=== PATIENT | female | born 1965 | race Caucasian/White ===

== ENCOUNTER 2017-01-08 15:45 | Emergency (ER) | payer BC ==
[2017-01-08 16:40] LABS: Mean Cell Volume 106.5 fl (78-100); Mean Platelet Volume 13.1 fl (6-9.5); Platelet Count 90 K/mm3 (150-450); Red Blood Count 3.23 M/mm3 (4.1-5.4); Red Cell Distribution Width 18.6 % (11.5-14.0); White Blood Count 9.7 K/mm3 (4.0-10.5)
[2017-01-08 16:44] LABS: Mean Corpuscular Hemoglobin 38.6 pg (26-32)
[2017-01-08 16:52] LABS: ADD URINE CULTURE? NO (NO); COMPLETE URINE MICROSCOPIC? NO; Collection Type CCMS; Ph 6.5 (5-6)
--- NOTE | 2017-01-08 16:55 | XRAY ---
Indication: Pain. URI. Comparison: None Portable chest demonstrates normal heart, lungs, and bony thorax with a few calcified granulomas.
--- NOTE | 2017-01-08 16:55 | ERPHSYRPT ---
- History of Present Illness Time Seen by Provider: 01/08/17 16:00 Source: patient, family Exam Limitations: no limitations Patient Subjective Stated Complaint: lower back pain radiating to samm area x3 days. Triage Nursing Assessment: lower back pain radiating to samm area for 3 days. denies injury. saw jackie on friday for same s/s. denies pain with urination. normal bowels. nausea yesterday. has had upper resp s/s for 2 weeks. hoarseness noted. Timing/Duration: day(s) (3) Method of Injury: other (none) Quality: dull Back Pain Location: lumbar spine Severity of Pain-Max: moderate Severity of Pain-Current: moderate Modifying Factors: Improves With: movement Associated Symptoms: lower back pain, other (Pelvic pain. Also C/O URTI Sx unrelated . She has allergies and COPD, but no cough.) Allergies/Adverse Reactions: hydrocodone Adverse Reaction (Verified 01/08/17 15:58) Nausea Home Medications: Amox Tr/Potass Clav. 875 mg [Augmentin 875-125 Tablet] 875 mg PO BID 01/08 [History] Guaifenesin/Codeine Phosphate [Codeine-Guaifen 10-100 mg/5 ml] 473 ml PO Q4HPRN PRN 01/08/17 [History] Hx Tetanus, Diphtheria Vaccination/Date Given: Yes Hx Influenza Vaccination/Date Given: No Hx Pneumococcal Vaccination/Date Given: No Immunizations Up to Date: Yes - Review of Systems Constitutional: No Symptoms Eyes: No Symptoms Ears, Nose, & Throat: No Symptoms Respiratory: Dyspnea Cardiac: No Symptoms Abdominal/Gastrointestinal: Abdominal Pain, No Vomiting Genitourinary Symptoms: No Dysuria, No Frequency, No Hematuria Musculoskeletal: Back Pain Skin: No Symptoms Neurological: No Symptoms Psychological: No Symptoms Endocrine: No Symptoms Hematologic/Lymphatic: No Symptoms Immunological/Allergic: No Symptoms - Past Medical History Pertinent Past Medical History: Yes Neurological History: No Pertinent History ENT History: No Pertinent History Cardiac History: No Pertinent History Respiratory History: Bronchitis Endocrine Medical History: No Pertinent History Musculoskeletal History: No Pertinent History GI Medical History: No Pertinent History History: No Pertinent History Psycho-Social History: Depression, Other Female Reproductive Disorders: No Pertinent History - Past Surgical History Past Surgical History: Yes Neuro Surgical History: No Pertinent History Cardiac: No Pertinent History Respiratory: No Pertinent History Gastrointestinal: No Pertinent History Genitourinary: No Pertinent History Musculoskeletal: No Pertinent History Female Surgical History: Lumpectomy Other Surgical History: lt side breat lumpectomy - Social History Smoking Status: Current every day smoker How long have you smoked: 15 Exposure to second hand smoke: Yes Drug Use: none Patient Lives Alone: No - Nursing Vital Signs Temperature: 97.5 F Temperature Source: Oral Pulse Rate: 89 Respiratory Rate: 18 Pain Intensity: 9 - Physical Exam General Appearance: mild distress, other (Smells strongly of ETOH.) Eye Exam: eyes nml inspection Ears, Nose, Throat Exam: normal ENT inspection, pharynx normal Neck Exam: normal inspection, non-tender, supple, full range of motion Respiratory Exam: normal breath sounds, lungs clear Cardiovascular Exam: regular rate/rhythm, normal heart sounds, normal peripheral pulses Gastrointestinal Exam: soft, normal bowel sounds, tenderness (suprapubic) Extremity Exam: normal inspection, normal range of motion Peripheral Pulses: dorsalis-pedis (R): 3+, dorsalis-pedis (L): 3+ Neurologic Exam: alert, oriented x 3, cooperative, sensation nml Skin Exam: normal color, warm, dry SpO2 Interpretation: normal SpO2: 97 Oxygen Delivery: Room Air - Course Nursing assessment & vital signs reviewed: Yes - Radiology Exams Chest X-ray Interpretation: Teleradiologist Report, Negative L-Spine X-ray Interpretation: Other (DDD with L4-S1 facet arthropathy, L4 anterolisthesis on L5.) Ordered Tests: Active Orders 24 hr Category Date Time Status CHEST 1 VIEW (PORTABLE) Stat Exams 01/08/17 16:20 Completed LUMBAR LIMITED (2 OR 3 VIEWS) Stat Exams 01/08/17 16:20 Completed CBC W DIFF Stat Lab 01/08/17 16:32 Completed CMP Stat Lab 01/08/17 16:32 Completed Ethyl Alcohol,Urine Stat Lab 01/08/17 16:30 Completed Manual Differential NC Stat Lab 01/08/17 16:32 Completed UA W/RFX UR CULTURE Stat Lab 01/08/17 16:42 Completed Urine Triage Profile Stat Lab 01/08/17 16:42 Completed Lab/Rad Data: Laboratory Result Diagrams 01/08/17 16:32 01/08/17 16:32 Laboratory Results 01/08/17 01/08/17 01/08/17 Range/Units 16:42 16:42 16:32 WBC (4.0-10.5) K/mm3 RBC (4.1-5.4) M/mm3 Hgb (12.0-16.0) gm/dl Hct (35-47) % MCV (78-100) fl MCH (26-32) pg MCHC (32-36) g/dl RDW (11.5-14.0) % Plt Count (150-450) K/mm3 MPV (6-9.5) fl Segmented Neutrophils (36.0-66.0) % Band Neutrophils (0.0-2.0) % Lymphocytes (Manual) (24-44) % Monocytes (Manual) (0.0-12.0) % Differential Comment Platelet Estimate (NORMAL) Poikilocytosis Anisocytosis Macrocytosis Sodium 134 L (136-145) mEq/L Potassium 2.9 L* (3.5-5.1) mEq/L Chloride 92 L (98-107) mEq/L Carbon Dioxide 30.6 (21-32) mEq/L Anion Gap 13.4 (5-15) MEQ/L BUN 4 L (9-20) mg/dL Creatinine 1.02 (0.55-1.30) mg/dl Estimated GFR > 60 ML/MIN Glucose 416 H (70-110) MG/DL Calcium 8.5 (8.5-10.1) mg/dL Total Bilirubin 5.3 H (0.2-1.0) mg/dL AST 185 H (15-37) U/L ALT 83 H (12-78) U/L Alkaline Phosphatase 251 H (46-116) U/L Serum Total Protein 6.5 (6.4-8.2) gm/dL Albumin 3.0 L (3.4-5.0) g/dL Ur Collection Type CCMS Urine Color YELLOW (YELLOW) Urine Appearance CLEAR (CLEAR) Ur Specific [place] 1.010 (1.005-1.025) Urine Protein NEGATIVE (Negative) Urine Glucose (UA) 500 (NEGATIVE) mg/dL Urine Ketones NEGATIVE (NEGATIVE) Urine Nitrite NEGATIVE (NEGATIVE) Urine Bilirubin SMALL (NEGATIVE) Urine Urobilinogen 2 (0-1) mg/dL Urine WBC (Auto) NEGATIVE (NEGATIVE) Urine RBC (Auto) NEGATIVE (0-5) Umberto/ul Urine Opiates Level POS. (NEGATIVE) Ur Methadone NEG. (NEGATIVE) Urine Barbiturates NEG. (NEGATIVE) Ur Phencyclidine (PCP) NEG. (NEGATIVE) Urine Amphetamine NEG. (NEGATIVE) U Benzodiazepine Level NEG. (NEGATIVE) Urine Cocaine NEG. (NEGATIVE) Urine Marijuana (THC) NEG. (NEGATIVE) Urine pH 6.5 (3-8.5) Urine Ethyl Alcohol (0.00-20) mg/dl Specimen Received 01-08-17 1650 01/08/17 01/08/17 Range/Units 16:32 16:30 WBC 9.7 (4.0-10.5) K/mm3 RBC 3.23 L (4.1-5.4) M/mm3 Hgb 12.5 (12.0-16.0) gm/dl Hct 34.4 L (35-47) % MCV 106.5 H (78-100) fl MCH 38.6 H (26-32) pg MCHC 36.3 H (32-36) g/dl RDW 18.6 H (11.5-14.0) % Plt Count 90 L (150-450) K/mm3 MPV 13.1 H (6-9.5) fl Segmented Neutrophils 83 H (36.0-66.0) % Band Neutrophils 1 (0.0-2.0) % Lymphocytes (Manual) 7 L (24-44) % Monocytes (Manual) 9 (0.0-12.0) % Differential Comment ABNORMAL Platelet Estimate DECREASED (NORMAL) Poikilocytosis 1+ Anisocytosis 2+ Macrocytosis 1+ Sodium (136-145) mEq/L Potassium (3.5-5.1) mEq/L Chloride (98-107) mEq/L Carbon Dioxide (21-32) mEq/L Anion Gap (5-15) MEQ/L BUN (9-20) mg/dL Creatinine (0.55-1.30) mg/dl Estimated GFR ML/MIN Glucose (70-110) MG/DL Calcium (8.5-10.1) mg/dL Total Bilirubin (0.2-1.0) mg/dL AST (15-37) U/L ALT (12-78) U/L Alkaline Phosphatase (46-116) U/L Serum Total Protein (6.4-8.2) gm/dL Albumin (3.4-5.0) g/dL Ur Collection Type Urine Color (YELLOW) Urine Appearance (CLEAR) Ur Specific [place] (1.005-1.025) Urine Protein (Negative) Urine Glucose (UA) (NEGATIVE) mg/dL Urine Ketones (NEGATIVE) Urine Nitrite (NEGATIVE) Urine Bilirubin (NEGATIVE) Urine Urobilinogen (0-1) mg/dL Urine WBC (Auto) (NEGATIVE) Urine RBC (Auto) (0-5) Umberto/ul Urine Opiates Level (NEGATIVE) Ur Methadone (NEGATIVE) Urine Barbiturates (NEGATIVE) Ur Phencyclidine (PCP) (NEGATIVE) Urine Amphetamine (NEGATIVE) U Benzodiazepine Level (NEGATIVE) Urine Cocaine (NEGATIVE) Urine Marijuana (THC) (NEGATIVE) Urine pH 6.5 (3-8.5) Urine Ethyl Alcohol 126 H (0.00-20) mg/dl Specimen Received - Progress Progress: improved Counseled pt/family regarding: drug and/or alcohol abuse, lab results, diagnosis , need for follow-up, rad results - Departure Time of Disposition: 17:15 Departure Disposition: Home Clinical Impression: Thrombocytopenia, Megaloblastic red blood cells, Lumbar degenerative disc disease Alcohol intoxication Qualifiers: Complication of substance-induced condition: with unspecified complication Qualified Code(s): F10.129 - Alcohol abuse with intoxication, unspecified Condition: Stable Critical Care Time: No Referrals: HANNAH SZYMANSKI [Primary Care Provider] - Prescriptions: Cyclobenzaprine HCl 10 mg [Cyclobenzaprine 10 MG] 10 mg PO TID PRN #12 tab
--- NOTE | 2017-01-08 16:57 | XRAY ---
Indication: Back pain. Comparison: None 3 views of lumbar spine demonstrates 5 lumbar vertebral segments with minimal L2-L3 disc space narrowing, minimal multilevel anterior endplate spurring, mild bilateral L4-S1 degenerative facet arthropathy, 2-3 mm L4 anterolisthesis on L5, and mild aortoiliac calcifications. No other bony, articular, or soft tissue abnormalities.
[2017-01-08 17:05] LABS: ALKALINE PHOSPHATASE 251 U/L (46-116); ANION GAP 13.4 MEQ/L (5-15); BILIRUBIN,TOTAL 5.3 mg/dL (0.2-1.0); BLOOD UREA NITROGEN 4 mg/dL (9-20); CHLORIDE 92 mEq/L (98-107); Carbon Dioxide 30.6 mEq/L (21-32); Glucose 416 MG/DL (70-110); SGOT/AST 185 U/L (15-37); SGPT/ALT 83 U/L (12-78); SODIUM 134 mEq/L (136-145); Total Protein 6.5 gm/dL (6.4-8.2)
[2017-01-08 17:06] LABS: ANISOCYTOSIS 2+; BAND 1 % (0.0-2.0); Macrocytosis 1+; Platelet Estimate DECREASED (NORMAL); Poikilocytosis 1+; Total Cells Counted 100
[2017-01-08 17:10] LABS: Potassium 2.9 mEq/L (3.5-5.1)
[2017-01-08] MEDS ORDERED: Klor Con 10 MEQ PO ONE (17:41)
[2017-01-08] MEDS ORDERED: POTASSIUM CHL 40 MEQ/30 ML ORAL SOLUTION ONE (17:42)
[2017-01-08] MEDS: POTASSIUM CHL 40 MEQ/30 ML ORAL SOLUTION PO SCH ×2 (17:45→17:48)
[2017-01-08] MEDS ORDERED: Norflex 60 MG/2 ML IM ONE (17:46)
[2017-01-08] MEDS ORDERED: Norflex 60 MG/2 ML ONE (17:47)
[2017-01-08 18:10] VITALS: BP 139/70; PULSE 79; O2SAT 98
[2017-01-10 13:10] LABS: HEPATITIS B VIRUS CORE TOT AB Non Reactive (Non Reactive); Hepatitis B Surface Ab.Quant. <3.50 mIU/mL (0.00-8.49)
== END 2017-01-08 18:10 | disposition home or self-care (01) ==
LOC: ED 15:45
DX: D69.6 Thrombocytopenia, unspecified (principal); M51.36 Other intervertebral disc degeneration, lumbar region; F10.129 Alcohol abuse with intoxication, unspecified; M54.5 Low back pain
CPT/HCPCS: 36415; 71010; 72100; 80053; 80074; 80307; 80320; 81000; 83986; 85025; 96372; 99284; J2360; A9270-GY

== ENCOUNTER 2017-09-16 11:48 | Emergency (ER) | payer BC ==
[2017-09-16] MEDS ORDERED: Zofran 4 MG/2 ML VIAL IV ONE ×2 (11:59→20:01)
--- NOTE | 2017-09-16 12:04 | ERPHSYRPT ---
- History of Present Illness Time Seen by Provider: 09/16/17 12:01 Historian: patient Exam Limitations: no limitations Physician History: mild diffuse abdominal cramps w/ NVD for one week, hx cirrhosis, pain rad to back, no injury, no fever Allergies/Adverse Reactions: hydrocodone Adverse Reaction (Verified 09/16/17 12:07) Nausea Home Medications: No Reportable Medications [No Reported Medications] 09/16/17 [History] Hx Tetanus, Diphtheria Vaccination/Date Given: Yes Hx Influenza Vaccination/Date Given: No Hx Pneumococcal Vaccination/Date Given: No - Review of Systems Constitutional: No Fever Eyes: Other (icterus) Ears, Nose, & Throat: No Mouth Pain Respiratory: Dyspnea on Exertion (JUNG) Cardiac: No Chest Pain Abdominal/Gastrointestinal: Abdominal Pain, Nausea, Vomiting, Diarrhea Musculoskeletal: No Neck Pain Skin: Other (icterus) Neurological: No Dizziness, No Focal Weakness, No Headache, No Speech Changes Psychological: No Symptoms - Past Medical History Pertinent Past Medical History: Yes Neurological History: No Pertinent History ENT History: No Pertinent History Cardiac History: No Pertinent History Respiratory History: Bronchitis Endocrine Medical History: No Pertinent History Musculoskeletal History: No Pertinent History GI Medical History: No Pertinent History History: No Pertinent History Psycho-Social History: Depression, Other Female Reproductive Disorders: No Pertinent History - Past Surgical History Past Surgical History: Yes Neuro Surgical History: No Pertinent History Cardiac: No Pertinent History Respiratory: No Pertinent History Gastrointestinal: No Pertinent History Genitourinary: No Pertinent History Musculoskeletal: No Pertinent History Female Surgical History: Lumpectomy Other Surgical History: lt side breat lumpectomy - Social History Smoking Status: Current every day smoker How long have you smoked: 15 Exposure to second hand smoke: Yes Drug Use: none Patient Lives Alone: No - Nursing Vital Signs Nursing Vital Signs: Initial Vital Signs Temperature 97.7 F 09/16/17 12:00 Pulse Rate 102 H 09/16/17 12:00 Respiratory Rate 18 09/16/17 12:00 Blood Pressure 118/79 09/16/17 12:00 O2 Sat by Pulse Oximetry 99 09/16/17 12:00 Pain Scale Pain Intensity 7 - Physical Exam General Appearance: no apparent distress Eye Exam: PERRL/EOMI, scleral icterus Ears, Nose, Throat Exam: normal ENT inspection Neck Exam: normal inspection Respiratory Exam: normal breath sounds Cardiovascular Exam: regular rate/rhythm Gastrointestinal/Abdomen Exam: soft, tenderness, distention, No rebound Back Exam: No vertebral tenderness Extremity Exam: normal range of motion, pelvis stable, No pedal edema Neurologic Exam: alert, oriented x 3, cooperative Skin Exam: warm, dry - Course Nursing assessment & vital signs reviewed: Yes EKG Interpreted by Me: Other (nsr 91 prolonged QTc) - CT Exams Abdomen/Pelvis CT Interpretation: Discussed w/radiologist, Other (ascites, no obstruction) - Radiology Ultrasound Exam Abdomen Ultrasound: discussed w/radiologist, Other (gb sludge and wall thickening) Ordered Tests: Active Orders 24 hr Category Date Time Status Clean Catch Urine Specimen STAT Care 09/16/17 14:30 Ordered EKG-ER Only STAT Care 09/16/17 11:59 Active IV Insertion STAT Care 09/16/17 11:59 Active ABDOMEN AND PELVIS W/0 CONTRAS [CT] Stat Exams 09/16/17 11:59 Completed CHEST 1 VIEW (PORTABLE) Stat Exams 09/16/17 11:59 Completed GALLBLADDER [US] Stat Exams 09/16/17 Completed AMYLASE Stat Lab 09/16/17 12:30 Completed BLOOD CULTURE Stat Lab 09/16/17 Ordered CBC W DIFF Stat Lab 09/16/17 12:30 Completed CMP Stat Lab 09/16/17 12:30 Completed CULTURE,URINE Stat Lab 09/16/17 Uncollected CULTURE,URINE Stat Lab 09/16/17 12:35 Received LIPASE Stat Lab 09/16/17 12:30 Completed MAG [MAGNESIUM] Stat Lab 09/16/17 14:31 Ordered Manual Differential NC Stat Lab 09/16/17 12:30 Completed PROTIME WITH INR Stat Lab 09/16/17 12:30 Completed TROPONIN Q3H Lab 09/16/17 12:30 Completed TROPONIN Q3H Lab 09/16/17 15:00 Ordered TROPONIN Q3H Lab 09/16/17 18:00 Ordered TROPONIN Q3H Lab 09/16/17 21:00 Ordered TROPONIN Q3H Lab 09/17/17 00:00 Ordered UA W/ MICROSCOPIC Stat Lab 09/16/17 12:35 Completed Medication Summary Generic Name Dose Route Start Last Admin Trade Name Freq PRN Reason Stop Dose Admin Ceftriaxone Sodium/Dextrose 1 g in 50 mls @ 100 mls/hr 09/16/17 14:31 Rocephin 1 Gm-D5w 50 Ml Bag IV 09/16/17 15:00 STAT STA Discontinued Medications Generic Name Dose Route Start Last Admin Trade Name Aaron PRN Reason Stop Dose Admin Ondansetron HCl 4 mg 09/16/17 11:59 09/16/17 12:13 Zofran 4 Mg/2 Ml Vial IV 09/16/17 12:00 4 mg STAT ONE Administration Ondansetron HCl Confirm 09/16/17 12:09 Zofran 4 Mg/2 Ml Vial Administered 09/16/17 12:10 Dose 4 mg .ROUTE .STK-MED ONE Potassium Chloride 40 meq 09/17/17 13:23 Potassium Chl 40 Meq/30 Ml Oral Solution PO 09/17/17 13:24 DAILY ONE Potassium Chloride 40 meq 09/16/17 13:32 09/16/17 13:37 Potassium Chloride 20 Meq Powder For Oral Aundrea PO 09/16/17 13:33 40 meq STAT ONE Administration Potassium Chloride Confirm 09/16/17 13:36 Potassium Chloride 20 Meq Powder For Oral Aundrea Administered 09/16/17 13:37 Dose 40 meq .ROUTE .STK-MED ONE Lab/Rad Data: Laboratory Result Diagrams 09/16/17 12:30 09/16/17 12:30 Laboratory Results 09/16/17 09/16/17 09/16/17 Range/Units 12:35 12:30 12:30 WBC (4.0-10.5) K/mm3 RBC (4.1-5.4) M/mm3 Hgb (12.0-16.0) gm/dl Hct (35-47) % MCV (78-100) fl MCH (26-32) pg MCHC (32-36) g/dl RDW (11.5-14.0) % Plt Count (150-450) K/mm3 MPV (6-9.5) fl Absolute Neutrophils (1.4-6.9) Segmented Neutrophils (36.0-66.0) % Lymphocytes (Manual) (24-44) % Monocytes (Manual) (0.0-12.0) % Metamyelocytes % Nucleated RBCs % Differential Comment Platelet Estimate (NORMAL) Polychromasia Poikilocytosis Anisocytosis INR (0.8-3.0) Sodium (136-145) mEq/L Potassium (3.5-5.1) mEq/L Chloride (98-107) mEq/L Carbon Dioxide (21-32) mEq/L Anion Gap (5-15) MEQ/L BUN (9-20) mg/dL Creatinine (0.55-1.30) mg/dl Estimated GFR ML/MIN Glucose (70-110) MG/DL Calcium (8.5-10.1) mg/dL Total Bilirubin (0.2-1.0) mg/dL AST (15-37) U/L ALT (12-78) U/L Alkaline Phosphatase (46-116) U/L Ammonia 97 H (11-32) MMOL/l Troponin I < 0.017 (0.000-0.056) ng/ml Serum Total Protein (6.4-8.2) gm/dL Albumin (3.4-5.0) g/dL Amylase (25-115) U/L Lipase (73-393) U/L Ur Collection Type CATH Urine Color DUSTY (YELLOW) Urine Appearance CLEAR (CLEAR) Urine pH 6.0 (5-6) Ur Specific [place] 1.010 (1.005-1.025) Urine Protein COLOR INTERFERENCE (Negative) Urine Ketones COLOR INTERFERENCE (NEGATIVE) Urine Blood 5-10 (0-5) Umberto/ul Urine Nitrite COLOR INTERFERENCE (NEGATIVE) Urine Bilirubin LARGE (NEGATIVE) Urine Urobilinogen 12 (0-1) mg/dL Ur Leukocyte Esterase COLOR INTERFERENCE (NEGATIVE) Urine Microscopic RBC 0-2 (0-2) /HPF Urine Microscopic WBC 10-15 (0-5) /HPF Ur Epithelial Cells RARE (FEW) /HPF Urine Bacteria FEW (NEGATIVE) /HPF Urine Culture Reflexed YES (NO) Urine Glucose COLOR INTERFERENCE (NEGATIVE) mg/dL Specimen Received 09/16/17 1235 09/16/17 09/16/17 09/16/17 Range/Units 12:30 12:30 12:30 WBC 7.6 (4.0-10.5) K/mm3 RBC 2.62 L (4.1-5.4) M/mm3 Hgb 10.3 L (12.0-16.0) gm/dl Hct 29.8 L (35-47) % MCV 113.7 H (78-100) fl MCH 39.3 H (26-32) pg MCHC 34.6 (32-36) g/dl RDW 14.3 H (11.5-14.0) % Plt Count 44 L (150-450) K/mm3 MPV 12.8 H (6-9.5) fl Absolute Neutrophils 5.8 (1.4-6.9) Segmented Neutrophils 75 H (36.0-66.0) % Lymphocytes (Manual) 13 L (24-44) % Monocytes (Manual) 10 (0.0-12.0) % Metamyelocytes 2 % Nucleated RBCs 1 % Differential Comment ABNORMAL Platelet Estimate DECREASED (NORMAL) Polychromasia 1+ Poikilocytosis 1+ Anisocytosis 1+ INR 2.41 (0.8-3.0) Sodium 131 L (136-145) mEq/L Potassium 2.6 L* (3.5-5.1) mEq/L Chloride 89 L (98-107) mEq/L Carbon Dioxide 27.8 (21-32) mEq/L Anion Gap 16.7 H (5-15) MEQ/L BUN 18 (9-20) mg/dL Creatinine 1.58 H (0.55-1.30) mg/dl Estimated GFR 37 ML/MIN Glucose 124 H (70-110) MG/DL Calcium 8.8 (8.5-10.1) mg/dL Total Bilirubin 14.30 H (0.2-1.0) mg/dL AST 126 H (15-37) U/L ALT 81 H (12-78) U/L Alkaline Phosphatase 149 H (46-116) U/L Ammonia (11-32) MMOL/l Troponin I (0.000-0.056) ng/ml Serum Total Protein 6.8 (6.4-8.2) gm/dL Albumin 2.5 L (3.4-5.0) g/dL Amylase 73 (25-115) U/L Lipase 911 H (73-393) U/L Ur Collection Type Urine Color (YELLOW) Urine Appearance (CLEAR) Urine pH (5-6) Ur Specific [place] (1.005-1.025) Urine Protein (Negative) Urine Ketones (NEGATIVE) Urine Blood (0-5) Umberto/ul Urine Nitrite (NEGATIVE) Urine Bilirubin (NEGATIVE) Urine Urobilinogen (0-1) mg/dL Ur Leukocyte Esterase (NEGATIVE) Urine Microscopic RBC (0-2) /HPF Urine Microscopic WBC (0-5) /HPF Ur Epithelial Cells (FEW) /HPF Urine Bacteria (NEGATIVE) /HPF Urine Culture Reflexed (NO) Urine Glucose (NEGATIVE) mg/dL Specimen Received - Progress Progress: improved Progress Note: 09/16/17 14:34 disposition d/w Dr Irby and Marquis that advise transfer to [facility] accept transfer to Discussed with Dr.: Irby - Departure Time of Disposition: 14:35 Departure Disposition: Transfer Clinical Impression: Hypokalemia Liver failure Qualifiers: Liver failure chronicity: chronic Hepatic coma status: without hepatic coma Qualified Code(s): K72.10 - Chronic hepatic failure without coma Condition: Stable Critical Care Time: No Referrals: NAYELY PERSAUD [Primary Care Provider] -
[2017-09-16] MEDS ORDERED: Zofran 4 MG/2 ML VIAL ONE ×2 (12:09→20:02)
[2017-09-16 12:37] LABS: Mean Cell Volume 113.7 fl (78-100); Mean Corpuscular Hemoglobin 39.3 pg (26-32); Mean Platelet Volume 12.8 fl (6-9.5); Platelet Count 44 K/mm3 (150-450); Red Blood Count 2.62 M/mm3 (4.1-5.4); Red Cell Distribution Width 14.3 % (11.5-14.0); White Blood Count 7.6 K/mm3 (4.0-10.5)
[2017-09-16 12:54] LABS: INR 2.41 (0.8-3.0)
--- NOTE | 2017-09-16 12:59 | XRAY ---
Indication: Nausea and vomiting. Comparison: January 08, 2017. Portable chest again demonstrates normal heart, lungs, and bony thorax with a few incidental calcified granulomas.
[2017-09-16 13:02] LABS: Collection Type CATH; Glucose COLOR INTERFERENCE mg/dL (NEGATIVE); Leukocyte Esterase COLOR INTERFERENCE (NEGATIVE)
[2017-09-16 13:03] LABS: ADD URINE CULTURE? YES (NO); Bacteria FEW /HPF (NEGATIVE); Bilirubin LARGE (NEGATIVE); COMPLETE URINE MICROSCOPIC? YES; Epithelial Cells RARE /HPF (FEW)
--- NOTE | 2017-09-16 13:03 | XRAY ---
Indication: Nausea and vomiting. Cirrhosis. Ascites. Multiple contiguous axial images obtained through the abdomen and pelvis without contrast as ordered. Comparison: None Lung bases demonstrates bilateral calcified granulomas and tiny bibasilar effusions. Heart is not enlarged. Diffusely cirrhotic appearing liver with large abdominal/pelvic ascites. No free air. Gallbladder is abnormally distended without gallstones. Noncontrasted stomach and bowel loops appear nonobstructed. Remaining pancreas, spleen, adrenal glands, kidneys, ureters, bladder, and uterus appear unremarkable for noncontrast exam. Mild aortoiliac calcifications without AAA. Osseous structures intact with mild multilevel lumbar degenerative changes. Impression: 1. Cirrhotic liver with large abdomen/pelvic ascites. 2. Abnormal distended gallbladder without gallstones. Gallbladder sonogram may yield further information if clinically warranted. 3. Tiny bibasilar effusions and evidence for old granulomatous disease. CTDI 23.01
[2017-09-16 13:11] LABS: ALBUMIN 2.5 g/dL (3.4-5.0); ANION GAP 16.7 MEQ/L (5-15); BILIRUBIN,TOTAL 14.3 mg/dL (0.2-1.0); Carbon Dioxide 27.8 mEq/L (21-32); Total Protein 6.8 gm/dL (6.4-8.2)
[2017-09-16 13:16] LABS: Potassium 2.6 mEq/L (3.5-5.1)
[2017-09-16] MEDS ORDERED: POTASSIUM CHLORIDE 20 MEQ POWDER FOR ORAL SOL PO ONE (13:32)
[2017-09-16] MEDS ORDERED: POTASSIUM CHLORIDE 20 MEQ POWDER FOR ORAL SOL ONE (13:36)
--- NOTE | 2017-09-16 13:54 | XRAY ---
Indication: Distended gallbladder on same-day CT. Two-dimensional right upper quadrant abdominal sonogram performed. Comparison: July 16, 2014. Gallbladder is moderately distended with now minimal sludge in the dependent portion. There is borderline 3 mm gallbladder wall thickening. Common bile left measures 8mm. New abdominal ascites and cirrhotic appearing liver. Remaining visualized pancreas and right kidney appear sonographically unremarkable. Right kidney measures 10.7 cm in length. Impression: 1. Distended gallbladder with minimal sludge. Borderline gallbladder wall thickening either due to cholecystitis versus edema secondary to ascites. 2. Cirrhotic liver with ascites.
[2017-09-16 14:06] LABS: ABSOLUTE NEUTROPHILS 5.8 (1.4-6.9); Metamyelocyte 2 %; Nucleated Red Blood Cell 1 %; Platelet Estimate DECREASED (NORMAL); Polychromasia 1+; Total Cells Counted 100
[2017-09-16 14:07] LABS: ANISOCYTOSIS 1+; Poikilocytosis 1+
[2017-09-16] MEDS ORDERED: ROCEPHIN 1 Gm-D5w 50 ml Bag** 1 G/50 ML IVPB IV STA (14:31)
[2017-09-16] MEDS ORDERED: ROCEPHIN 1 Gm-D5w 50 ml Bag** 1 G/50 ML IVPB IV ONE (14:42)
[2017-09-16] MEDS ORDERED: MORPHINE SULFATE 2 MG INJ IV ONE (20:01)
[2017-09-16] MEDS ORDERED: MORPHINE SULFATE 2 MG INJ ONE (20:02)
[2017-09-16 22:21] LABS: ANION GAP 17.1 MEQ/L (5-15); Carbon Dioxide 27.9 mEq/L (21-32); Potassium 3.1 mEq/L (3.5-5.1)
[2017-09-16 22:28] VITALS: BP 117/59; PULSE 114; O2SAT 96
[2017-09-17] MEDS ORDERED: POTASSIUM CHL 40 MEQ/30 ML ORAL SOLUTION PO ONE (13:23)
== END 2017-09-16 23:05 | disposition short-term general hospital (02) ==
LOC: ED 11:48
DX: K72.10 Chronic hepatic failure without coma (principal); E87.6 Hypokalemia; R11.2 Nausea with vomiting, unspecified; R19.7 Diarrhea, unspecified
CPT/HCPCS: 36000; 36415; 71010; 74176; 76705; 80048; 80053; 81000; 82140; 82150; 83690; 83735; 84484; 85025; 85610; 87040; 87086; 93005; 96365; 96374; 96376; 99284; 99285; J0696; J2270; J2405; P9612

== ENCOUNTER 2017-12-01 06:01 | Day surgery (SDC) | payer BC, OTHER ==
[~2017-12-01 06:01] MED LIST: Lactated Ringers 1,000 ML IV SCH
[2017-12-01] MEDS ORDERED: Ketamine HCl 50 MG/ML IV ONE (06:02)
[2017-12-01] MEDS ORDERED: DIPRIVAN 200 MG/20 ML IV ONE (06:02)
[2017-12-01] MEDS ORDERED: Lactated Ringers 1,000 ML IV ONE ×2 (06:09→06:32)
[2017-12-01 08:54] VITALS: BP 99/62; PULSE 75; O2SAT 98
--- NOTE | 2017-12-01 14:01 | OP ---
SURGERY DATE/TIME: 12/01/2017 0745 PREOPERATIVE DIAGNOSIS: Screening exam prior to transplant. POSTOPERATIVE DIAGNOSIS: Normal colon. PROCEDURE: Colonoscopy. SURGEON: Dr. Martin. ANESTHESIA: MAC. Medications given by anesthesia department. HISTORY: The patient is a 52 year-old white female with cirrhosis end stage. The patient was needing a colonoscopy to be placed on the transplant list. The patient was appraised of the risks of the procedure including the risk of perforation, phlebitis, untoward reaction to medication, bleeding and missed lesions. The patient verbalized her understanding and desired to have the procedure performed. DESCRIPTION OF PROCEDURE: The patient was given the medications by the anesthesia department. She had continuous pulse oximetry, ECG monitoring, intermittent blood pressure monitoring and tidal CO2 monitoring during the examination. She was placed in the left lateral decubitus position. A digital rectal examination was performed and revealed normal anal sphincter tone and no masses. The flexible Olympus pediatric colonoscope was used to intubate the rectum. A view of the colon was developed sequentially to the cecum including a short distance into the terminal ileum. Upon insertion and withdrawal, including a retroflex view in the rectum, no mucosal lesions were encountered. The scope was removed from the patient who tolerated the procedure well and was sent back to OP recovery in good condition. The prep was noted to be good.
== END 2017-12-01 08:45 | disposition home or self-care (01) ==
LOC: SDC 06:01
PROVIDERS: ATTEND Family Medicine
PROC: 0DJD8ZZ Inspection of Lower Intestinal Tract, Via Natural or Artificial Opening Endoscopic (ICD-10-PCS; principal; 2017-12-01)
DX: Z12.11 Encounter for screening for malignant neoplasm of colon (principal); Z79.4 Long term (current) use of insulin; Z79.899 Other long term (current) drug therapy; K72.90 Hepatic failure, unspecified without coma
CPT/HCPCS: 00812; 82962; J2704

== ENCOUNTER 2017-12-22 05:56 | Day surgery (SDC) | payer OTHER ==
[2017-12-22 06:37] VITALS: BP 125/65; PULSE 98; O2SAT 93
== END 2017-12-22 06:45 | disposition home or self-care (01) ==
LOC: SDC 05:56
PROVIDERS: ATTEND Family Medicine
DX: R11.0 Nausea (principal); R05 Cough; Z53.09 Procedure and treatment not carried out because of other contraindication

== ENCOUNTER 2018-01-02 05:47 | Day surgery (SDC) | payer OTHER ==
[2018-01-02] MEDS ORDERED: Ketamine HCl 50 MG/ML IV ONE (05:48)
[2018-01-02] MEDS ORDERED: DIPRIVAN 200 MG/20 ML IV ONE (05:48)
[2018-01-02] MEDS ORDERED: Lactated Ringers 1,000 ML IV SCH (06:00)
--- NOTE | 2018-01-02 09:01 | OP ---
SURGERY DATE/TIME: 01/02/2018 0743 PREOPERATIVE DIAGNOSIS: Cirrhosis of the liver. The patient is undergoing evaluation for liver transplant. POSTOPERATIVE DIAGNOSIS: Cirrhosis of the liver. The patient is undergoing evaluation for liver transplant. PROCEDURE: Esophagogastroduodenoscopy. SURGEON: Dr. Martin. ANESTHESIA: MAC. Medications were given by the anesthesia department. BRIEF HISTORY: The patient was appraised of the risks of the procedure including the risk of perforation, phlebitis, untoward reaction to medication, bleeding and missed lesions. The patient verbalized her understanding and desired to have the procedure performed. DESCRIPTION OF PROCEDURE: The patient was given the medications by the anesthesia department. She had continuous pulse oximetry, ECG monitoring, intermittent blood pressure monitoring and tidal CO2 monitoring during the examination. She was placed in the left lateral decubitus position. A bite block was placed. The flexible Olympus gastroscope was used to intubate the oropharynx. A view of the larynx was obtained and was normal. The scope was easily passed in the esophagus which appeared to be normal without any evidence of esophageal varices. The gastroesophageal junction appeared to be essentially normal. The stomach was entered where normal gastric rugal folds were seen and these distended nicely with insufflation of air. There was generalized erythema throughout the stomach with punctate areas of bleeding. The scope was passed along the greater curvature of the stomach to the pylorus which was intubated. The duodenum inspected and found to be somewhat erythematous and edematous as well but no erosions or ulcerations were noted. The scope was withdrawn towards the stomach. A retroflex view was obtained of the lesser curvature, fundus and cardia regions of the stomach and there was no significant hiatal hernia noted at this point. The scope was then removed from the patient who tolerated the procedure well and was sent back to outpatient recovery in good condition.
[2018-01-02 09:17] VITALS: BP 117/70; PULSE 91; O2SAT 100
== END 2018-01-02 09:00 | disposition home or self-care (01) ==
LOC: SDC 05:47
PROVIDERS: ATTEND Family Medicine
PROC: 0DJ08ZZ Inspection of Upper Intestinal Tract, Via Natural or Artificial Opening Endoscopic (ICD-10-PCS; principal; 2018-01-02)
DX: K74.60 Unspecified cirrhosis of liver (principal)
CPT/HCPCS: J2704

== ENCOUNTER 2018-01-05 11:09 | Emergency (ER) | payer OTHER ==
[2018-01-05] MEDS ORDERED: DUONEB 0.5-3 MG/3 ml Neb IH ONE ×4 (11:22→12:18)
[2018-01-05] MEDS ORDERED: solu-MEDROL 125 MG IV ONE (11:22)
[2018-01-05] MEDS ORDERED: MORPHINE SULFATE 4 MG INJ IV ONE (11:28)
--- NOTE | 2018-01-05 11:28 | ERPHSYRPT ---
- History of Present Illness Time Seen by Provider: 01/05/18 11:20 Source: patient Exam Limitations: no limitations Physician History: 52 y/o female with history of cirrhosis, COPD and chronic bronchitis comes to the ER with complaints of shortness of breath, cough and chest tightness that started a couple of days ago. Pt arrives with acute respiratory distress, increase work of breathing and tachycardic. Her O2 level is 97% on RA. Pt describes the chets pain as tightness, constant, 8/10 and pt has not taken any pain meds. Pt denies any fever, chills, abdominal pain, nausea or vomiting. Timing/Duration: yesterday Activities at Onset: none Severity of Dyspnea-Max: severe Severity of Dyspnea-Current: severe Possible Cause: no prior episodes Modifying Factors: Improves With: activity Associated Symptoms: wheezing, heaviness International travel in last 2 weeks: No Allergies/Adverse Reactions: hydrocodone Adverse Reaction (Verified 01/05/18 11:28) Nausea Home Medications: Famotidine 20 mg [Pepcid 20 MG] 20 mg PO BID 11/27/17 [History] Glimepiride [Amaryl] 1 mg PO DAILY 11/27/17 [History] Lactulose 10 gm PO Q6H 11/27/17 [History] Magnesium Oxide [Magnesium] 400 mg PO DAILY PRN PRN 11/27/17 [History] Metformin HCl 500 mg [Glucophage 500 MG] 500 mg PO BID 11/27/17 [History] Metoprolol Succinate [Toprol Xl] 25 mg PO DAILY 11/27/17 [History] Pentoxifylline 400 mg [Trental 400 MG] 400 mg PO BID 11/27/17 [History] Potassium Chloride 20 Meq [Klor-Con 20 MEQ] 20 meq PO BID 11/27/17 [History] Spironolactone 25 mg [Aldactone 25 MG] 25 mg PO DAILY 11/27/17 [History] Torsemide 20 mg [Demadex 20 mg] 20 mg PO DAILY 11/27/17 [History] Esomeprazole Magnesium [Nexium] 40 mg PO DAILY 01/02/18 [History] Hx Tetanus, Diphtheria Vaccination/Date Given: Yes Hx Influenza Vaccination/Date Given: No Hx Pneumococcal Vaccination/Date Given: No - Review of Systems Constitutional: No Fever, No Chills Eyes: No Symptoms Ears, Nose, & Throat: No Symptoms Respiratory: Cough, Dyspnea, Dyspnea on Exertion (JUNG), Wheezing Cardiac: Chest Pain, Edema, No Syncope Abdominal/Gastrointestinal: No Abdominal Pain, No Nausea, No Vomiting, No Diarrhea Genitourinary Symptoms: No Dysuria Musculoskeletal: No Back Pain, No Neck Pain Skin: No Rash Neurological: No Dizziness, No Focal Weakness, No Sensory Changes Psychological: No Symptoms Endocrine: No Symptoms All Other Systems: Reviewed and Negative - Past Medical History Pertinent Past Medical History: Yes Neurological History: No Pertinent History ENT History: No Pertinent History Cardiac History: Hypertension Respiratory History: Bronchitis Endocrine Medical History: No Pertinent History Musculoskeletal History: No Pertinent History GI Medical History: Cirrhosis, Esophageal Disorder History: No Pertinent History Psycho-Social History: Other Female Reproductive Disorders: No Pertinent History Other Medical History: stage 4 cirrhosis - Past Surgical History Past Surgical History: Yes Neuro Surgical History: No Pertinent History Cardiac: No Pertinent History Respiratory: No Pertinent History Gastrointestinal: No Pertinent History Genitourinary: No Pertinent History Musculoskeletal: No Pertinent History Female Surgical History: Lumpectomy Other Surgical History: lt side breast lumpectomy - Social History Smoking Status: Current every day smoker How long have you smoked: 35 Exposure to second hand smoke: Yes Drug Use: none Patient Lives Alone: No - Nursing Vital Signs Nursing Vital Signs: Initial Vital Signs Pulse Rate 109 H 01/05/18 11:10 Respiratory Rate 34 H 01/05/18 11:10 Blood Pressure 154/93 01/05/18 11:10 O2 Sat by Pulse Oximetry 98 01/05/18 11:10 Pain Scale Pain Intensity 2 - Physical Exam General Appearance: moderate distress, alert Eye Exam: PERRL/EOMI Neck Exam: normal inspection, supple Respiratory Exam: respiratory distress, diminished breath sounds, wheezing Cardiovascular/Chest Exam: normal heart sounds, regular rate/rhythm, tachycardia Abdominal/Gastrointestinal Exam: soft, normal bowel sounds, No tenderness, No distention, No mass Extremity Exam: non-tender, normal range of motion, normal inspection, no calf tenderness, no pedal edema Neurologic Exam: alert, oriented x 3, cooperative, 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, sensation nml, No motor deficits Skin Exam: normal color, warm, No dry SpO2 Interpretation: normal SpO2: 98 Oxygen Delivery: Room Air - Course Nursing assessment & vital signs reviewed: Yes EKG Interpreted by Me: Sinus Tach Ordered Tests: Active Orders 24 hr Category Date Time Status EKG-ER Only STAT Care 01/05/18 11:22 Active IV Insertion STAT Care 01/05/18 11:22 Active CHEST WITH CONTRAST [CT] Stat Exams 01/05/18 14:06 Completed ARTERIAL BLOOD GASES Stat Lab 01/05/18 11:28 Completed BLOOD CULTURE Stat Lab 01/05/18 11:46 Received CBC W DIFF Stat Lab 01/05/18 11:44 Completed CMP Stat Lab 01/05/18 11:44 Completed Lactic Acid Stat Lab 01/05/18 11:28 Completed Lactic Acid Stat Lab 01/05/18 13:30 Completed MAGNESIUM Stat Lab 01/05/18 11:44 Completed NT PRO BNP Stat Lab 01/05/18 11:44 Completed PROTIME WITH INR Stat Lab 01/05/18 11:44 Completed PTT Stat Lab 01/05/18 11:44 Completed TROPONIN Q3H Lab 01/05/18 11:44 Completed TROPONIN Q3H Lab 01/05/18 14:54 Completed Respiratory Nebulizer STAT RT 01/05/18 11:24 Completed Respiratory Nebulizer STAT RT 01/05/18 12:10 Completed Medication Summary Discontinued Medications Generic Name Dose Route Start Last Admin Trade Name Freq PRN Reason Stop Dose Admin Albuterol/Ipratropium Confirm 01/05/18 11:22 Duoneb 0.5-3 Mg/3 Ml Neb Administered 01/05/18 11:23 Dose 3 ml IH .STK-MED ONE Albuterol/Ipratropium 3 ml 01/05/18 11:22 01/05/18 11:28 Duoneb 0.5-3 Mg/3 Ml Neb IH 01/05/18 11:23 3 ml STAT ONE Administration Albuterol/Ipratropium 3 ml 01/05/18 12:10 01/05/18 12:21 Duoneb 0.5-3 Mg/3 Ml Neb IH 01/05/18 12:11 3 ml STAT ONE Administration Albuterol/Ipratropium Confirm 01/05/18 12:18 Duoneb 0.5-3 Mg/3 Ml Neb Administered 01/05/18 12:19 Dose 3 ml IH .STK-MED ONE Guaifenesin/Codeine Phosphate 5 ml 01/05/18 12:49 01/05/18 12:57 Robitussin Ac Syrup Unit Dose Cup PO 01/05/18 12:50 5 ml ONCE ONE Administration Guaifenesin/Codeine Phosphate Confirm 01/05/18 12:56 Robitussin Ac Syrup Unit Dose Cup Administered 01/05/18 12:57 Dose 5 ml .ROUTE .STK-MED ONE Sodium Chloride 1,000 mls @ 999 mls/hr 01/05/18 14:19 01/05/18 14:52 Sodium Chloride 0.9% 1000 Ml IV 01/05/18 15:19 999 mls/hr .Q1H1M STA Administration Sodium Chloride Confirm 01/05/18 14:44 Sodium Chloride 0.9% 1000 Ml Administered 01/05/18 14:45 Dose 1,000 mls @ ud .ROUTE .STK-MED ONE Lorazepam 1 mg 01/05/18 12:49 01/05/18 12:58 Ativan 2 Mg/1 Ml Vial IV 01/05/18 12:50 1 mg STAT ONE Administration Lorazepam Confirm 01/05/18 12:55 Ativan 2 Mg/1 Ml Vial Administered 01/05/18 12:56 Dose 2 mg .ROUTE .STK-MED ONE Methylprednisolone Sodium Succinate 125 mg 01/05/18 11:22 01/05/18 11:52 Solu-Medrol 125 Mg IV 01/05/18 11:23 125 mg STAT ONE Administration Methylprednisolone Sodium Succinate Confirm 01/05/18 11:49 Solu-Medrol 125 Mg Administered 01/05/18 11:50 Dose 125 mg .ROUTE .STK-MED ONE Morphine Sulfate 4 mg 01/05/18 11:28 01/05/18 11:52 Morphine Sulfate 4 Mg Inj IV 01/05/18 11:29 4 mg STAT ONE Administration Morphine Sulfate Confirm 01/05/18 11:49 Morphine Sulfate 4 Mg Inj Administered 01/05/18 11:50 Dose 4 mg .ROUTE .STK-MED ONE Ondansetron HCl 4 mg 01/05/18 11:29 01/05/18 11:52 Zofran 4 Mg/2 Ml Vial IV 01/05/18 11:30 4 mg STAT ONE Administration Ondansetron HCl Confirm 01/05/18 11:49 Zofran 4 Mg/2 Ml Vial Administered 01/05/18 11:50 Dose 4 mg .ROUTE .STK-MED ONE Ondansetron HCl Confirm 01/05/18 14:16 Zofran 4 Mg/2 Ml Vial Administered 01/05/18 14:17 Dose 4 mg .ROUTE .STK-MED ONE Ondansetron HCl 4 mg 01/05/18 14:20 01/05/18 14:22 Zofran 4 Mg/2 Ml Vial IV 01/05/18 14:21 4 mg STAT ONE Administration Lab/Rad Data: Laboratory Result Diagrams 01/05/18 11:44 01/05/18 11:44 Laboratory Results 01/05/18 01/05/18 01/05/18 Range/Units 14:54 13:30 11:44 WBC (4.0-10.5) K/mm3 RBC (4.1-5.4) M/mm3 Hgb (12.0-16.0) gm/dl Hct (35-47) % MCV (78-100) fl MCH (26-32) pg MCHC (32-36) g/dl RDW (11.5-14.0) % Plt Count (150-450) K/mm3 MPV (6-9.5) fl Gran % (36.0-66.0) % Eos # (Auto) (0-0.5) Absolute Lymphs (auto) (1.0-4.6) Absolute Monos (auto) (0.0-1.3) Lymphocytes % (24.0-44.0) % Monocytes % (0.0-12.0) % Eosinophils % (0.00-5.0) % Basophils % (0.0-0.4) % Absolute Granulocytes (1.4-6.9) Basophils # (0-0.4) PT (9.95-12.35) SECONDS INR (0.8-3.0) APTT (25.3-37.0) SECONDS Puncture Site pCO2 (35-45) mmHg pO2 (75-100) mmHg Base Excess (-2.0-2.0) O2 Saturation (94-100) g/dF ABG pH (7.35-7.45) ABG HCO3 (22-28) ABG O2 Sat (Measured) (95-100) % Mikael Test A-a Gradient a/A Ratio Hemoglobin Carboxyhemoglobin (0.0-6.9) % THgb Methemoglobin (1.4-1.5) % Potassium (3.5-5.1) Temperature C POC O2 Flow Rate % Sodium (137-145) mmol/L Chloride (98-107) mmol/L Carbon Dioxide (22-30) mmol/L Anion Gap (5-15) MEQ/L BUN (7-17) mg/dL Creatinine (0.52-1.04) mg/dL Estimated GFR ML/MIN Glucose (74-106) mg/dL Lactic Acid 4.4 H (0.4-2.0) Calcium (8.4-10.2) mg/dL Magnesium (1.6-2.3) mg/dL Total Bilirubin (0.2-1.3) mg/dL AST (14-36) U/L ALT (0-35) U/L Alkaline Phosphatase (38-126) U/L Troponin I < 0.012 (0.000-0.034) ng/mL NT-Pro-B Natriuret Pep (0-900) pg/mL Serum Total Protein (6.3-8.2) g/dL Albumin (3.5-5.0) g/dL Influenza Type A Ag (NEGATIVE) Influenza Type B Ag (NEGATIVE) RSV (PCR) (Negative) Slides for Path Review 01/05/18 01/05/18 01/05/18 Range/Units 11:44 11:44 11:44 WBC 6.5 (4.0-10.5) K/mm3 RBC 2.79 L (4.1-5.4) M/mm3 Hgb 9.8 L (12.0-16.0) gm/dl Hct 29.9 L (35-47) % MCV 107.2 H (78-100) fl MCH 35.1 H (26-32) pg MCHC 32.8 (32-36) g/dl RDW 15.0 H (11.5-14.0) % Plt Count 97 L (150-450) K/mm3 MPV 9.7 H (6-9.5) fl Gran % 75.4 H (36.0-66.0) % Eos # (Auto) 0.09 (0-0.5) Absolute Lymphs (auto) 0.79 L (1.0-4.6) Absolute Monos (auto) 0.67 (0.0-1.3) Lymphocytes % 12.2 L (24.0-44.0) % Monocytes % 10.4 (0.0-12.0) % Eosinophils % 1.4 (0.00-5.0) % Basophils % 0.6 (0.0-0.4) % Absolute Granulocytes 4.88 (1.4-6.9) Basophils # 0.04 (0-0.4) PT 18.2 H (9.95-12.35) SECONDS INR 1.63 (0.8-3.0) APTT 38.0 H (25.3-37.0) SECONDS Puncture Site pCO2 (35-45) mmHg pO2 (75-100) mmHg Base Excess (-2.0-2.0) O2 Saturation (94-100) g/dF ABG pH (7.35-7.45) ABG HCO3 (22-28) ABG O2 Sat (Measured) (95-100) % Mikael Test A-a Gradient a/A Ratio Hemoglobin Carboxyhemoglobin (0.0-6.9) % THgb Methemoglobin (1.4-1.5) % Potassium 4.0 (3.5-5.1) Temperature C POC O2 Flow Rate % Sodium 137 (137-145) mmol/L Chloride 104 (98-107) mmol/L Carbon Dioxide 22 (22-30) mmol/L Anion Gap 14.3 (5-15) MEQ/L BUN 7 (7-17) mg/dL Creatinine 0.79 (0.52-1.04) mg/dL Estimated GFR > 60 ML/MIN Glucose 124 H (74-106) mg/dL Lactic Acid (0.4-2.0) Calcium 8.9 (8.4-10.2) mg/dL Magnesium 1.7 (1.6-2.3) mg/dL Total Bilirubin 3.80 H (0.2-1.3) mg/dL AST 46 H (14-36) U/L ALT 22 (0-35) U/L Alkaline Phosphatase 175 H (38-126) U/L Troponin I (0.000-0.034) ng/mL NT-Pro-B Natriuret Pep 747 (0-900) pg/mL Serum Total Protein 6.5 (6.3-8.2) g/dL Albumin 3.1 L (3.5-5.0) g/dL Influenza Type A Ag (NEGATIVE) Influenza Type B Ag (NEGATIVE) RSV (PCR) (Negative) Slides for Path Review YES 01/05/18 01/05/18 Range/Units 11:40 11:28 WBC (4.0-10.5) K/mm3 RBC (4.1-5.4) M/mm3 Hgb (12.0-16.0) gm/dl Hct (35-47) % MCV (78-100) fl MCH (26-32) pg MCHC (32-36) g/dl RDW (11.5-14.0) % Plt Count (150-450) K/mm3 MPV (6-9.5) fl Gran % (36.0-66.0) % Eos # (Auto) (0-0.5) Absolute Lymphs (auto) (1.0-4.6) Absolute Monos (auto) (0.0-1.3) Lymphocytes % (24.0-44.0) % Monocytes % (0.0-12.0) % Eosinophils % (0.00-5.0) % Basophils % (0.0-0.4) % Absolute Granulocytes (1.4-6.9) Basophils # (0-0.4) PT (9.95-12.35) SECONDS INR (0.8-3.0) APTT (25.3-37.0) SECONDS Puncture Site RIGHT BRACHIAL pCO2 33 L (35-45) mmHg pO2 61 L (75-100) mmHg Base Excess -2.6 L (-2.0-2.0) O2 Saturation 90.2 L (94-100) g/dF ABG pH 7.42 (7.35-7.45) ABG HCO3 21.4 L (22-28) ABG O2 Sat (Measured) 94.9 L (95-100) % Mikael Test NOT APPLICABLE A-a Gradient 47 a/A Ratio 0.56 Hemoglobin 9.9 Carboxyhemoglobin 3.7 (0.0-6.9) % THgb Methemoglobin 1.3 L (1.4-1.5) % Potassium 4.1 (3.5-5.1) Temperature 37.0 C POC O2 Flow Rate 21 % Sodium (137-145) mmol/L Chloride (98-107) mmol/L Carbon Dioxide (22-30) mmol/L Anion Gap (5-15) MEQ/L BUN (7-17) mg/dL Creatinine (0.52-1.04) mg/dL Estimated GFR ML/MIN Glucose (74-106) mg/dL Lactic Acid 2.5 H (0.4-2.0) Calcium (8.4-10.2) mg/dL Magnesium (1.6-2.3) mg/dL Total Bilirubin (0.2-1.3) mg/dL AST (14-36) U/L ALT (0-35) U/L Alkaline Phosphatase (38-126) U/L Troponin I (0.000-0.034) ng/mL NT-Pro-B Natriuret Pep (0-900) pg/mL Serum Total Protein (6.3-8.2) g/dL Albumin (3.5-5.0) g/dL Influenza Type A Ag NEGATIVE (NEGATIVE) Influenza Type B Ag NEGATIVE (NEGATIVE) RSV (PCR) NEGATIVE (Negative) Slides for Path Review - Progress Progress: improved Air Movement: poor Progress Note: 01/05/18 15:15 The CTA chest shows a large right pleural effusion of the right hemithorax. No PE. The pO2 was 61 and the patient was given 2 duoneb and solumedrol. The rest of the labs are unremarkable. The patient will need a paracentesis and thoracentesis. Pt has been transferred to Dr Goldsmith [facility]. - Departure Time of Disposition: 19:26 Departure Disposition: Transfer Clinical Impression: Pleural effusion Liver failure Qualifiers: Liver failure chronicity: chronic Hepatic coma status: without hepatic coma Qualified Code(s): K72.10 - Chronic hepatic failure without coma Condition: Fair Critical Care Time: Yes Critical Care Time(excluding separately billable procedures): 30-74 minutes Referrals: NAYELY PERSAUD [Primary Care Provider] -
[2018-01-05] MEDS ORDERED: Zofran 4 MG/2 ML VIAL IV ONE ×2 (11:29→14:20)
[2018-01-05 11:30] LABS: A-aADO2 47; ABG HEMOGLOBIN 9.9; ABG POTASSIUM 4.1 (3.5-5.1); ARTERIAL BLD GAS O2 SATURATION 94.9 % (95-100); ARTERIAL BLOOD GAS BASE EXCESS -2.6 (-2.0-2.0); ARTERIAL BLOOD GAS FIO2 21 %; ARTERIAL BLOOD GAS PCO2 33 mmHg (35-45); ARTERIAL BLOOD GAS PO2 61 mmHg (75-100); ARTERIAL BLOOD GAS pH 7.42 (7.35-7.45); CARBOXYHEMOGLOBIN 3.7 % THgb (0.0-6.9); HCO3- 21.4 (22-28); HGB O2 SAT 90.2 g/dF (94-100); Lactic Acid 2.5 (0.4-2.0); Methhemoglobin 1.3 % (1.4-1.5); paO2 pAO1 0.56
[2018-01-05 11:31] LABS: ABG SITE RIGHT BRACHIAL
[2018-01-05] MEDS ORDERED: Zofran 4 MG/2 ML VIAL ONE ×2 (11:49→14:16)
[2018-01-05] MEDS ORDERED: solu-MEDROL 125 MG ONE (11:49)
[2018-01-05] MEDS ORDERED: MORPHINE SULFATE 4 MG INJ ONE (11:49)
[2018-01-05 11:57] LABS: BASOPHIL % 0.6 % (0.0-0.4); Basophil (Absolute #) 0.04 (0-0.4); Eosinophil % 1.4 % (0.00-5.0); Eosinophil (Absolute #) 0.09 (0-0.5); Granulocyte Absolute (ANC) 4.88 (1.4-6.9); Granulocytes % 75.4 % (36.0-66.0); Hematocrit 29.9 % (35-47); Hemoglobin 9.8 gm/dl (12.0-16.0); Lymphocyte (Absolute #) 0.79 (1.0-4.6); Lymphocytes % 12.2 % (24.0-44.0); Mean Cell Volume 107.2 fl (78-100); Mean Corpuscular Hemoglobin 35.1 pg (26-32); Mean Corpuscular Hgb Concent. 32.8 g/dl (32-36); Mean Platelet Volume 9.7 fl (6-9.5); Monocyte (Absolute #) 0.67 (0.0-1.3); Monocytes % 10.4 % (0.0-12.0); Platelet Count 97 K/mm3 (150-450); Red Blood Count 2.79 M/mm3 (4.1-5.4); White Blood Count 6.5 K/mm3 (4.0-10.5)
[2018-01-05 12:15] LABS: ALBUMIN 3.1 g/dL (3.5-5.0); ALKALINE PHOSPHATASE 175 U/L (38-126); ANION GAP 14.3 MEQ/L (5-15); BLOOD UREA NITROGEN 7 mg/dL (7-17); CHLORIDE 104 mmol/L (98-107); Calcium 8.9 mg/dL (8.4-10.2); Carbon Dioxide 22 mmol/L (22-30); Creatinine 1 0.79 mg/dL (0.52-1.04); Glucose 124 mg/dL (74-106); SGOT/AST 46 U/L (14-36); SGPT/ALT 22 U/L (0-35); SODIUM 137 mmol/L (137-145); Total Protein 6.5 g/dL (6.3-8.2)
[2018-01-05 12:22] LABS: NT PRO BNP 747 pg/mL (0-900)
[2018-01-05 12:24] LABS: INR 1.63 (0.8-3.0)
[2018-01-05 12:30] LABS: Slide Review 1 YES
[2018-01-05 12:38] LABS: INFLUENZA A NEGATIVE (NEGATIVE); INFLUENZA B NEGATIVE (NEGATIVE); RESPIRATORY SYNCTIAL VIRUS NEGATIVE (Negative)
[2018-01-05] MEDS ORDERED: Ativan 2 MG/1 ML VIAL IV ONE (12:49)
[2018-01-05] MEDS ORDERED: Robitussin AC Syrup Unit Dose Cup PO ONE (12:49)
[2018-01-05] MEDS ORDERED: Ativan 2 MG/1 ML VIAL ONE (12:55)
[2018-01-05] MEDS ORDERED: Robitussin AC Syrup Unit Dose Cup ONE (12:56)
[2018-01-05 13:56] LABS: Lactic Acid 4.4 (0.4-2.0)
[2018-01-05] MEDS ORDERED: Sodium Chloride 0.9% 1000 ML 1,000 ML IV STA (14:19)
[2018-01-05] MEDS ORDERED: Sodium Chloride 0.9% 1000 ML 1,000 ML ONE (14:44)
--- NOTE | 2018-01-05 14:52 | XRAY ---
Indication: Short of breath. Multiple contiguous axial images obtained through the chest using 80 cc Isovue 370 contrast and PE protocol. Comparison: None There is adequate opacification of the pulmonary arteries. However respiration artifact limits evaluation for pulmonary embolus. No large central pulmonary embolus. Heart is not enlarged. Aorta minimally arteriosclerotic without aneurysm/dissection. No pathologic mediastinal/hilar lymphadenopathy. Examination of the lung parenchyma demonstrates 99% opacification of the right hemithorax due to large effusion and probable compressive right lung atelectasis. Minimal mass effect on the heart and mediastinal structures. Small left effusion with mild left lower lobe compressive atelectasis. Right upper and left lower lobe calcified granulomas. Bony thorax intact with mild degenerative changes throughout the spine. Limited upper abdomen demonstrates cirrhotic liver and incompletely visualized moderate ascites. Impression: 1. Pulmonary embolus evaluation limited by respiration artifact. No large central pulmonary embolus. 2. Near complete opacification of the right hemithorax due to large effusion and right lung atelectasis. Minimal mass effect on the heart/mediastinal structures. Small left effusion. 3. Cirrhotic liver with incompletely visualized moderate ascites. CT DI 19.30
[2018-01-05 15:40] VITALS: BP 140/84; PULSE 109
[2018-01-05 19:27] VITALS: O2SAT 98
== END 2018-01-05 16:22 | disposition short-term general hospital (02) ==
LOC: ED 11:09
DX: J90 Pleural effusion, not elsewhere classified (principal); K72.10 Chronic hepatic failure without coma; Z79.899 Other long term (current) drug therapy
CPT/HCPCS: 36000; 36415; 36600; 71260; 80053; 82375; 82803; 83605; 83735; 83880; 84484; 85025; 85610; 85730; 87040; 87631; 93005; 94150; 94640; 96360; 96374; 96375; 96376; 99285; J2060; J2270; J2405; J2930; A9270-GY

== ENCOUNTER 2018-01-29 09:42 | Observation (INO) | payer OTHER ==
[2018-01-29] MEDS ORDERED: Sodium Chloride 0.9% 10 ML FLUSH Syringe IV PRN (10:32)
--- NOTE | 2018-01-29 11:09 | XRAY ---
Indication: Short of breath. Comparison: CT PE study January 05, 2018. PA/lateral chest again demonstrates near complete opacification of the right hemithorax due to large effusion/atelectasis occupying at least 75% of the hemithorax, previously 99%. Stable small left base effusion/atelectasis. Heart is not enlarged. Bony thorax intact. Impression: Minimally improved large right effusion/atelectasis with stable small left base effusion/atelectasis.
[2018-01-29 12:30] LABS: Granulocyte Absolute (ANC) 6.56 (1.4-6.9); Hematocrit 24.4 % (35-47); Hemoglobin 8.2 gm/dl (12.0-16.0); Mean Corpuscular Hgb Concent. 33.6 g/dl (32-36); Mean Platelet Volume 9.4 fl (6-9.5); Platelet Count 147 K/mm3 (150-450); Red Blood Count 2.28 M/mm3 (4.1-5.4); Red Cell Distribution Width 14.2 % (11.5-14.0); White Blood Count 11.2 K/mm3 (4.0-10.5)
[2018-01-29] MEDS: Lasix 40 MG/4 ML IV SCH ×2 (12:35→23:38)
[2018-01-29 12:40] LABS: Mean Corpuscular Hemoglobin 35.9 pg (26-32)
[2018-01-29 12:57] LABS: ALBUMIN 3.1 g/dL (3.5-5.0); ALKALINE PHOSPHATASE 121 U/L (38-126); ANION GAP 14.9 MEQ/L (5-15); BLOOD UREA NITROGEN 11 mg/dL (7-17); CHLORIDE 101 mmol/L (98-107); Calcium 8.8 mg/dL (8.4-10.2); Carbon Dioxide 23 mmol/L (22-30); Creatinine 1 0.76 mg/dL (0.52-1.04); Glucose 142 mg/dL (74-106); Potassium 4.4 mmol/L (3.5-5.1); SGOT/AST 39 U/L (14-36); SGPT/ALT 22 U/L (0-35); SODIUM 135 mmol/L (137-145); Total Protein 6.5 g/dL (6.3-8.2)
[2018-01-29 13:06] LABS: NT PRO BNP 445 pg/mL (0-900)
[2018-01-29 15:36] LABS: ANISOCYTOSIS 1+; BAND 1 % (0.0-2.0); Eosinophil 8 % (0.00-3.0); Lymphocytes 13 % (24-44); Monocyte 1 % (0.0-12.0); Neutrophils 77 % (36.0-66.0); Platelet Estimate NORMAL (NORMAL); Total Cells Counted 100; Toxic Granulation 1+
[2018-01-29] MEDS ORDERED: LACTULOSE 10 GM PO PRN (16:42)
[2018-01-29] MEDS ORDERED: MAG-OX 400 PO PRN (16:42)
[2018-01-29] MEDS ORDERED: Voltaren GEL TOP PRN (16:42)
[2018-01-29] MEDS ORDERED: LACTULOSE 20 GM/30ML UD CUP PO PRN (16:50)
[2018-01-29] MEDS ORDERED: Toprol-Xl 25MG Tablets PO SCH (17:00)
[2018-01-29] MEDS ORDERED: Protonix 40MG Tablet PO SCH (17:00)
[2018-01-29] MEDS ORDERED: FOLATE 1 MG PO SCH (17:00)
[2018-01-29] MEDS ORDERED: Aldactone 25 MG PO SCH (17:00)
[2018-01-29] MEDS: Trental 400 MG PO SCH (17:43)
[2018-01-29] MEDS: Glucophage 500 MG PO SCH (17:43)
[2018-01-29 18:00] LABS: ABO TYPING A; Antibody Screen NEGATIVE (NEGATIVE); RH TYPING POSITIVE
[2018-01-29] MEDS ORDERED: Sodium Chloride 0.9% 500 ML 500 ML IV ONE (20:16)
[2018-01-29] MEDS ORDERED: NON-FORMULARY ITEM (Potassium Chloride 20 Meq [Klor-Con 20 Meq] 20 MEQ) PO SCH (22:00)
[2018-01-29] MEDS ORDERED: Klor Con 10 MEQ PO SCH (22:00)
[2018-01-29] MEDS ORDERED: Zofran 4 MG/2 ML VIAL IV PRN (22:10)
[2018-01-30 04:59] LABS: Hematocrit 30.3 % (35-47); Hemoglobin 10.4 gm/dl (12.0-16.0)
[2018-01-30 07:33] VITALS: BP 112/59; PULSE 87
[2018-01-30 07:46] VITALS: O2SAT 97
--- NOTE | 2018-01-30 07:49 | PCM.DCORD ---
- Discharge Discharge Date: 01/30/18 Disposition: HOME HEALTH SERVICE Prescriptions: Continue Torsemide 20 mg [Demadex 20 mg] 20 mg PO DAILY Spironolactone 25 mg [Aldactone 25 MG] 25 mg PO DAILY Potassium Chloride 20 Meq [Klor-Con 20 MEQ] 20 meq PO BID Pentoxifylline 400 mg [Trental 400 MG] 400 mg PO BID Metoprolol Succinate [Toprol Xl] 25 mg PO DAILY Metformin HCl 500 mg [Glucophage 500 MG] 500 mg PO BID Magnesium Oxide [Magnesium] 400 mg PO DAILY PRN PRN PRN Reason: Muscle Aches Lactulose 10 gm PO Q6H PRN PRN Reason: Constipation Glimepiride [Amaryl] 1 mg PO DAILY Esomeprazole Magnesium [Nexium] 40 mg PO DAILY Folic Acid 1 mg PO DAILY Diclofenac Sodium Gel [Voltaren GEL] 2 gm TOP QID PRN PRN Reason: Itching Follow up with: NAYELY PERSAUD [Primary Care Provider] - 1 Week
[2018-01-30] MEDS ORDERED: Amaryl 2 MG PO SCH (08:00)
[2018-01-30] MEDS ORDERED: GLIMEPIRIDE 1 MG PO SCH (10:00)
[2018-01-30] MEDS: Glucophage 500 MG PO SCH (10:18)
[2018-01-30] MEDS: Trental 400 MG PO SCH (10:18)
--- NOTE | 2018-02-03 12:10 | SSS ---
DISCHARGE DIAGNOSES: 1) ANEMIA. 2) CIRRHOSIS. 3) ANASARCA. HISTORY: The patient is a 52 year-old white female suffering from cirrhosis of the liver. She has been seen in [place] and is actually awaiting a liver transplant. The patient complained yesterday of being quite short of breath in the office. She had a fair amount of lymphedema. She had been recently been seen for possible paracentesis but they said the fluid volume had actually diminished since we started some Spironolactone. However the patient was otherwise dyspneic on exertion. It was felt that she might benefit from some IV Lasix to help dry her out further. It was found during her evaluation that she was anemic with hemoglobin of about 8. She was brought into the hospital and given IV Lasix after which she diuresed nicely. However she had very poor venous access. We had decided that she needed a transfusion of two units of blood. They placed a midline and we were able to give her 2 units of packed red blood cells to bring her hemoglobin up to 10.4. By the next morning she was feeling much better. The patient's laboratory studies otherwise showed her pretransfusion to be 8.2 on hemoglobin this was after we had diuresed her. She was A-positive and negative on antibody screen. She has white blood cell count 11,200, PLT count 147,000. She had sugar of 142 nonfasting with BUN 11, creatinine 0.76. Electrolytes were normal. Liver enzymes show SGOT 39, SGPT 22. Alkaline phosphatase 121. Her total bilirubin was somewhat elevated at 3.5. HOSPITAL COURSE: After the patient received Lasix and another transfusion she was feeling much better and felt to be ready for discharge home. She was discharged home on her usual home medications including Aldactone 25 mg t.i.d., potassium 10 mEq 2 tablets twice a day, Trental 400 mg b.i.d., Protonix 40 mg daily, Zofran 4 mg PRN for nausea, Toprol XL 25 mg daily, Glucophage 500 mg b.i.d., Lactulose 10 daily. The patient has an appointment to see her liver specialist in [place] in five days and she will see me again in the office in ten days. She will continue her usual home medication as listed above in the interim.
== END 2018-01-30 10:10 | disposition home health service (06) ==
LOC: MED SURG 09:42
PROVIDERS: ADMIT Family Medicine; ATTEND Family Medicine
DX: D64.9 Anemia, unspecified (principal); K74.60 Unspecified cirrhosis of liver; R60.1 Generalized edema; F10.20 Alcohol dependence, uncomplicated; J44.9 Chronic obstructive pulmonary disease, unspecified; E11.9 Type 2 diabetes mellitus without complications; F32.9 Major depressive disorder, single episode, unspecified; Z72.0 Tobacco use; Z79.899 Other long term (current) drug therapy
CPT/HCPCS: 36415; 36569; 71046; 80053; 83880; 85014; 85018; 85025; 86850; 86900; 86901; 86922; 93306; 94760; G0378; P9016; 36430; J1642; J1940; J2405; A9270-GY

== ENCOUNTER 2018-02-12 04:47 | Emergency (ER) | payer OTHER ==
[2018-02-12] MEDS ORDERED: Sodium Chloride 0.9% 1000 ML 1,000 ML ONE (05:01)
[2018-02-12] MEDS: Sodium Chloride 0.9% 1000 ML 1,000 ML IV SCH (05:02)
--- NOTE | 2018-02-12 05:02 | ERPHSYRPT ---
- History of Present Illness Time Seen by Provider: 02/12/18 04:50 Source: patient Physician History: PATIENT WITH A HISTORY OF TYPE 2 DIABETES, CHRONIC ALCOHOL ABUSE, CIRRHOSIS AND COPD RECENTLY HOSPITALIZED AT [facility] 4 DAYS AGO FOR RESPIRATORY INSUFFICIENCY WITH CHRONIC LIVER FAILURE. HAS HAD MULTIPLE PARACENTESIS, AND THORACENTESIS MOST RECENT PAST 4 DAYS. HAS ASSOCIATED PALPITATIONS, AND CHEST PAIN UPON INSPIRATION. Timing/Duration: day(s) Severity of Dyspnea-Max: severe Severity of Dyspnea-Current: severe Possible Cause: occasional episodes Modifying Factors: Improves With: activity Associated Symptoms: edema (MARKED SWELLING IN LOWER EXTREMITIES AND ABDOMEN) Allergies/Adverse Reactions: hydrocodone Adverse Reaction (Verified 02/12/18 05:09) Nausea Home Medications: Glimepiride [Amaryl] 1 mg PO DAILY 11/27/17 [History] Lactulose 10 gm PO Q6H PRN 11/27/17 [History] Magnesium Oxide [Magnesium] 400 mg PO DAILY PRN PRN 11/27/17 [History] Metformin HCl 500 mg [Glucophage 500 MG] 500 mg PO BID 11/27/17 [History] Metoprolol Succinate [Toprol Xl] 25 mg PO DAILY 11/27/17 [History] Pentoxifylline 400 mg [Trental 400 MG] 400 mg PO BID 11/27/17 [History] Potassium Chloride 20 Meq [Klor-Con 20 MEQ] 20 meq PO BID 11/27/17 [History] Spironolactone 25 mg [Aldactone 25 MG] 25 mg PO DAILY 11/27/17 [History] Torsemide 20 mg [Demadex 20 mg] 20 mg PO DAILY 11/27/17 [History] Esomeprazole Magnesium [Nexium] 40 mg PO DAILY 01/02/18 [History] Diclofenac Sodium Gel [Voltaren GEL] 2 gm TOP QID PRN 01/29/18 [History] Folic Acid 1 mg PO DAILY 01/29/18 [History] Hx Tetanus, Diphtheria Vaccination/Date Given: Yes Hx Influenza Vaccination/Date Given: No Hx Pneumococcal Vaccination/Date Given: No - Review of Systems Constitutional: Fever Eyes: No Symptoms Ears, Nose, & Throat: No Symptoms Respiratory: Dyspnea on Exertion (JUNG), No Cough, No Dyspnea Cardiac: No Symptoms, No Chest Pain, No Edema, No Syncope Abdominal/Gastrointestinal: No Abdominal Pain, No Nausea, No Vomiting, No Diarrhea Genitourinary Symptoms: No Symptoms, No Dysuria Musculoskeletal: Other (SWELLING IN LEGS), No Back Pain, No Neck Pain Skin: No Rash Neurological: No Dizziness, No Focal Weakness, No Sensory Changes Psychological: No Symptoms Endocrine: No Symptoms All Other Systems: Reviewed and Negative - Past Medical History Pertinent Past Medical History: Yes Neurological History: No Pertinent History ENT History: No Pertinent History Cardiac History: Hypertension Respiratory History: Bronchitis Endocrine Medical History: No Pertinent History Musculoskeletal History: No Pertinent History GI Medical History: Cirrhosis, Esophageal Disorder History: No Pertinent History Psycho-Social History: Other Female Reproductive Disorders: No Pertinent History Other Medical History: stage 4 cirrhosis - Past Surgical History Past Surgical History: Yes Neuro Surgical History: No Pertinent History Cardiac: No Pertinent History Respiratory: No Pertinent History Gastrointestinal: No Pertinent History Genitourinary: No Pertinent History Musculoskeletal: No Pertinent History Female Surgical History: Lumpectomy Other Surgical History: lt side breast lumpectomy - Social History Smoking Status: Former smoker How long have you smoked: 35 Exposure to second hand smoke: Yes Drug Use: none Patient Lives Alone: No - Nursing Vital Signs Nursing Vital Signs: Initial Vital Signs Temperature 98.0 F 02/12/18 04:50 Pulse Rate 110 H 02/12/18 04:50 Respiratory Rate 36 H 02/12/18 04:50 Blood Pressure 109/61 02/12/18 04:50 O2 Sat by Pulse Oximetry 100 02/12/18 04:50 Pain Scale Pain Intensity 6 - Physical Exam General Appearance: moderate distress Eye Exam: PERRL/EOMI Ears, Nose, Throat Exam: hearing grossly normal Neck Exam: normal inspection, supple Respiratory Exam: diminished breath sounds, accessory muscle use Cardiovascular/Chest Exam: normal heart sounds, regular rate/rhythm, edema, JVD , tachycardia Abdominal/Gastrointestinal Exam: soft, normal bowel sounds, other (MODERATE ASCITES), No tenderness, No distention, No mass Extremity Exam: normal range of motion, normal inspection, no calf tenderness, no pedal edema (PITTING EDEMA, AND 2+ PRESACRAL EMEMA) Peripheral Pulses Exam: carotid (R): 2+, carotid (L): 2+, femoral (R): 2+, femoral (L): 2+, dorsalis-pedis (R): 2+, dorsalis-pedis (L): 2+ Neurologic Exam: alert, oriented x 3, cooperative, 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 nml as tested, sensation nml, No motor deficits Skin Exam: normal color, warm, No dry SpO2 Interpretation: normal SpO2: 100 Oxygen Delivery: Nasal Cannula - Course EKG Interpreted by Me: RATE, Sinus Rhythm, Sinus Tach, NORMAL AXIS - Radiology Exams Chest X-ray Interpretation: Interpreted by me (RIGHT HEMITHORAX WITH MARKE PLEURAL EFFUSION) Ordered Tests: Active Orders 24 hr Category Date Time Status 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 STAT Care 02/12/18 04:53 Active EKG-ER Only STAT Care 02/12/18 04:53 Active CHEST 1 VIEW (PORTABLE) Stat Exams 02/12/18 04:53 Taken CBC W DIFF Stat Lab 02/12/18 04:55 Completed CMP Stat Lab 02/12/18 04:55 Completed Lactic Acid Stat Lab 02/12/18 04:53 Results MAGNESIUM Stat Lab 02/12/18 04:55 Completed NT PRO BNP Stat Lab 02/12/18 04:55 Completed PROTIME WITH INR Stat Lab 02/12/18 04:55 Completed TROPONIN Q3H Lab 02/12/18 04:55 Completed TROPONIN Q3H Lab 02/12/18 08:00 Ordered TROPONIN Q3H Lab 02/12/18 11:00 Ordered TROPONIN Q3H Lab 02/12/18 14:00 Ordered TROPONIN Q3H Lab 02/12/18 17:00 Ordered Respiratory Nebulizer STAT RT 02/12/18 04:54 Completed Medication Summary Generic Name Dose Route Start Last Admin Trade Name Freq PRN Reason Stop Dose Admin Sodium Chloride 1,000 mls @ 50 mls/hr 02/12/18 05:00 02/12/18 05:02 Sodium Chloride 0.9% 1000 Ml IV 03/14/18 04:59 50 mls/hr .Q20H ELBA Administration Discontinued Medications Generic Name Dose Route Start Last Admin Trade Name Freq PRN Reason Stop Dose Admin Albuterol/Ipratropium 3 ml 02/12/18 04:53 02/12/18 05:06 Duoneb 0.5-3 Mg/3 Ml Neb IH 02/12/18 04:54 3 ml STAT ONE Administration Albuterol/Ipratropium Confirm 02/12/18 05:05 Duoneb 0.5-3 Mg/3 Ml Neb Administered 02/12/18 05:06 Dose 3 ml IH .STK-MED ONE Potassium Chloride 40 meq 02/12/18 05:53 02/12/18 05:57 Klor Con 10 Meq PO 02/12/18 05:54 40 meq STAT ONE Administration Potassium Chloride Confirm 02/12/18 05:57 Klor Con 10 Meq Administered 02/12/18 05:58 Dose 40 meq PO .STK-MED ONE Lab/Rad Data: Laboratory Result Diagrams 02/12/18 04:55 02/12/18 04:55 Laboratory Results 02/12/18 02/12/18 02/12/18 Range/Units 04:55 04:55 04:55 WBC (4.0-10.5) K/mm3 RBC (4.1-5.4) M/mm3 Hgb (12.0-16.0) gm/dl Hct (35-47) % MCV (78-100) fl MCH (26-32) pg MCHC (32-36) g/dl RDW (11.5-14.0) % Plt Count (150-450) K/mm3 MPV (6-9.5) fl Gran % (36.0-66.0) % Eos # (Auto) (0-0.5) Absolute Lymphs (auto) (1.0-4.6) Absolute Monos (auto) (0.0-1.3) Lymphocytes % (24.0-44.0) % Monocytes % (0.0-12.0) % Eosinophils % (0.00-5.0) % Basophils % (0.0-0.4) % Absolute Granulocytes (1.4-6.9) Basophils # (0-0.4) PT 18.5 H (9.95-12.35) SECONDS INR 1.58 (0.8-3.0) Sodium (137-145) mmol/L Potassium (3.5-5.1) mmol/L Chloride (98-107) mmol/L Carbon Dioxide (22-30) mmol/L Anion Gap (5-15) MEQ/L BUN (7-17) mg/dL Creatinine (0.52-1.04) mg/dL Estimated GFR ML/MIN Glucose (74-106) mg/dL Lactic Acid (0.4-2.0) Calcium (8.4-10.2) mg/dL Magnesium (1.6-2.3) mg/dL Total Bilirubin (0.2-1.3) mg/dL AST (14-36) U/L ALT (0-35) U/L Alkaline Phosphatase (38-126) U/L Ammonia < 9 L (9-30) umol/L Troponin I 0.019 (0.000-0.034) ng/mL NT-Pro-B Natriuret Pep (0-900) pg/mL Serum Total Protein (6.3-8.2) g/dL Albumin (3.5-5.0) g/dL 02/12/18 02/12/18 02/12/18 Range/Units 04:55 04:55 04:53 WBC 10.5 (4.0-10.5) K/mm3 RBC 2.55 L (4.1-5.4) M/mm3 Hgb 8.9 L (12.0-16.0) gm/dl Hct 26.3 L (35-47) % MCV 103.1 H (78-100) fl MCH 34.9 H (26-32) pg MCHC 33.8 (32-36) g/dl RDW 18.1 H (11.5-14.0) % Plt Count 85 L (150-450) K/mm3 MPV 10.1 H (6-9.5) fl Gran % 67.3 H (36.0-66.0) % Eos # (Auto) 1.04 H (0-0.5) Absolute Lymphs (auto) 1.04 (1.0-4.6) Absolute Monos (auto) 1.28 (0.0-1.3) Lymphocytes % 10.0 L (24.0-44.0) % Monocytes % 12.2 H (0.0-12.0) % Eosinophils % 10.0 H (0.00-5.0) % Basophils % 0.5 (0.0-0.4) % Absolute Granulocytes 7.04 H (1.4-6.9) Basophils # 0.05 (0-0.4) PT (9.95-12.35) SECONDS INR (0.8-3.0) Sodium 133 L (137-145) mmol/L Potassium 3.3 L (3.5-5.1) mmol/L Chloride 94 L (98-107) mmol/L Carbon Dioxide 28 (22-30) mmol/L Anion Gap 14.9 (5-15) MEQ/L BUN 17 (7-17) mg/dL Creatinine 1.85 H (0.52-1.04) mg/dL Estimated GFR 30.4 ML/MIN Glucose 166 H (74-106) mg/dL Lactic Acid 2.9 H (0.4-2.0) Calcium 8.7 (8.4-10.2) mg/dL Magnesium 1.8 (1.6-2.3) mg/dL Total Bilirubin 3.70 H (0.2-1.3) mg/dL AST 59 H (14-36) U/L ALT 33 (0-35) U/L Alkaline Phosphatase 175 H (38-126) U/L Ammonia (9-30) umol/L Troponin I (0.000-0.034) ng/mL NT-Pro-B Natriuret Pep 888 (0-900) pg/mL Serum Total Protein 6.5 (6.3-8.2) g/dL Albumin 3.1 L (3.5-5.0) g/dL - Progress Progress: unchanged Air Movement: fair Progress Note: 02/12/18 05:33 IV NORMAL SALINE 20ML/HR, KCL 40MEQ ORALLY, PATIENT REFUSES TRANSFER TO [facility] FOR EMERGENT THORACENTESIS, PATIENT STATES SHE HAS A STANDING ORDER FOR THORACENTESIS AT [facility] NEEDED. PATIENT STATES THEY WILL DRIVE THEMSELVES TO [facility] LATER THIS MORNING, RISKS VS BENEFIT DISCUSSED WITH PATIENT. 02/12/18 05:58 Will see patient in: hospital (full admit) - Departure Time of Disposition: 06:15 Departure Disposition: AMA Clinical Impression: ACUTE DYSPNEA, MARKED RIGHT PLEURAL EFFUSION, STAGE 1V LIVER FAILURE Condition: Stable Critical Care Time: No Referrals: NAYELY PERSAUD [Primary Care Provider] - Additional Instructions: FOLLOWUP WITH [facility] OUT PATIENT RADIOLOGIST FOR DRAINAGE OF LUNG FLUID, CONSULT YOUR KIDNEY SPECIALIST DR ALY TODAY SCHEDULED.
[2018-02-12] MEDS ORDERED: DUONEB 0.5-3 MG/3 ml Neb IH ONE (05:05)
[2018-02-12] MEDS: DUONEB 0.5-3 MG/3 ml Neb IH ONE (05:06)
[2018-02-12 05:12] LABS: Lactic Acid 2.9 (0.4-2.0)
[2018-02-12 05:18] LABS: BASOPHIL % 0.5 % (0.0-0.4); Basophil (Absolute #) 0.05 (0-0.4); Eosinophil (Absolute #) 1.04 (0-0.5); Granulocyte Absolute (ANC) 7.04 (1.4-6.9); Granulocytes % 67.3 % (36.0-66.0); Hematocrit 26.3 % (35-47); Hemoglobin 8.9 gm/dl (12.0-16.0); Lymphocyte (Absolute #) 1.04 (1.0-4.6); Mean Cell Volume 103.1 fl (78-100); Mean Corpuscular Hemoglobin 34.9 pg (26-32); Mean Corpuscular Hgb Concent. 33.8 g/dl (32-36); Mean Platelet Volume 10.1 fl (6-9.5); Monocyte (Absolute #) 1.28 (0.0-1.3); Monocytes % 12.2 % (0.0-12.0); Platelet Count 85 K/mm3 (150-450); Red Blood Count 2.55 M/mm3 (4.1-5.4); Red Cell Distribution Width 18.1 % (11.5-14.0); White Blood Count 10.5 K/mm3 (4.0-10.5)
[2018-02-12 05:26] LABS: ALBUMIN 3.1 g/dL (3.5-5.0); INR 1.58 (0.8-3.0); Potassium 3.3 mmol/L (3.5-5.1); Total Protein 6.5 g/dL (6.3-8.2)
[2018-02-12 05:38] LABS: ANION GAP 14.9 MEQ/L (5-15); BILIRUBIN,TOTAL 3.7 mg/dL (0.2-1.3); Calcium 8.7 mg/dL (8.4-10.2); Creatinine 1 1.85 mg/dL (0.52-1.04)
[2018-02-12] MEDS: Klor Con 10 MEQ PO ONE (05:57)
[2018-02-12] MEDS ORDERED: Klor Con 10 MEQ PO ONE (05:57)
[2018-02-12 06:28] VITALS: BP 102/59; PULSE 101; O2SAT 97
[2018-02-12 07:32] LABS: Slide Review 1 YES
--- NOTE | 2018-02-12 09:01 | XRAY ---
Indication: Dyspnea. Comparison: January 29, 2018. Portable chest demonstrates worsening right effusion/atelectasis with now near complete hemithorax opacification. Remaining heart and left lung unremarkable.
== END 2018-02-12 06:27 | disposition left against medical advice (07) ==
LOC: ED 04:47
DX: J90 Pleural effusion, not elsewhere classified (principal); R06.00 Dyspnea, unspecified; K72.90 Hepatic failure, unspecified without coma; M79.89 Other specified soft tissue disorders; E11.9 Type 2 diabetes mellitus without complications; Z79.84 Long term (current) use of oral hypoglycemic drugs; Z79.899 Other long term (current) drug therapy
CPT/HCPCS: 36415; 71045; 80053; 82140; 83605; 83735; 83880; 84484; 85025; 85610; 93005; 93041; 94150; 94640; 96360; 99284; A9270-GY